=== PATIENT | female | born 1980 | race Caucasian/White ===

== ENCOUNTER 2019-06-14 16:09 | Emergency (ER) | payer MEDICAID, OTHER ==
[~2019-06-14] VITALS: Ht 162.6 cm; Wt 77.1 kg
[2019-06-14 16:31] VITALS: BP 140/97
--- NOTE | 2019-06-14 17:03 | NUR ---
38 Y/O FEMALE STATES SHE HAS INCREASED BLOOD PRESSURE. STATES SHE IS 15 WKS . DENIES BLURRED VISION, HEADACHES, OR PAIN. LMP MAR 04 2019. PT LAYING IN BED CALM AND PLEASANT. RR EVEN AND UNLABORED. VSS. AT BEDSIDE. MEDHX: DENIES ALLERGIES: NKA
[2019-06-14 17:52] LABS: APPEARANCE,URINE CLEAR (CLEAR); BILIRUBIN,URINE NEGATIVE (NEGATIVE); BLOOD, URINE NEGATIVE (NEGATIVE); COLOR,URINE YELLOW (YELLOW); LEUKOCYTE ESTERASE ,URINE NEGATIVE (NEGATIVE); NITRITE, URINE NEGATIVE (NEGATIVE); PH,URINE 5.5 (5.0-9.0); UGLUCOSE NEGATIVE (NEGATIVE)
[2019-06-14 18:20] LABS: BASOPHILS % (AUTO) 0.3 % (0.0-2.0); EOSINOPHILS # (AUTO) 0.2 K/uL (0-0.4); EOSINOPHILS % (AUTO) 1.9 % (0.0-4.0); HEMOGLOBIN 13.7 g/dL (12.0-16.0); LYMPHOCYTES % (AUTO) 22.8 % (20.5-51.1); MEAN CORPUSCULAR HEMOGLOBIN 30 pg (27-31); MEAN CORPUSCULAR HGB CONC 33 g/dL (33-37); MEAN CORPUSCULAR VOLUME 90.4 fL (80-94); MONOCYTES # (AUTO) 0.5 K/uL (0.8-1.0); MONOCYTES % (AUTO) 5.3 % (1.7-9.3); NEUTROPHILS % (AUTO) 69.7 % (42.2-75.2); PLATELET COUNT (AUTO) 283 K/uL (140-450); RED BLOOD CELL COUNT(AUTO) 4.54 MIL/uL (4.20-5.40); RED CELL DISTRIBUTION WIDTH 13.5 % (11.6-13.7); WHITE BLOOD COUNT (AUTO) 8.6 K/uL (4.8-10.8)
[2019-06-14 18:36] LABS: ANION GAP 8.3 (8-16); CARBON DIOXIDE 26.3 mmol/L (21-32); CREATININE 0.6 mg/dL (0.6-1.3); POTASSIUM 3.6 mmol/L (3.5-5.1); TOTAL BILIRUBIN 0.2 mg/dL (0.0-1.0)
[2019-06-14 19:13] VITALS: BP 140/97
--- NOTE | 2019-06-14 19:13 | NUR ---
Patient discharged with v/s stable. Written and verbal after care instructions given and explained. Patient verbalized understanding. Ambulatory with steady gait. All questions addressed prior to discharge. Advised to follow up with PMD.
== END 2019-06-14 19:13 | disposition home or self-care (01) ==
LOC: MED 16:09
DX: O16.2 Unspecified maternal hypertension, second trimester (principal); Z3A.15 15 weeks gestation of pregnancy; Z98.890 Other specified postprocedural states
CPT/HCPCS: 36415; 80053; 81003; 84702; 85025; 86900; 86901; 99283

== ENCOUNTER 2019-08-23 12:34 | Inpatient (IN) | payer MEDICAID, OTHER ==
[~2019-08-23] VITALS: Ht 165.1 cm; Wt 78.0 kg
[2019-08-23] MEDS: LACTATED RINGERS 1,000 ML IV SCH ×2 (04:30→14:42)
[2019-08-23 13:00] VITALS: BP 152/96
[2019-08-23 13:35] LABS: BASOPHILS % (AUTO) 0.4 % (0.0-2.0); EOSINOPHILS # (AUTO) 0.2 K/uL (0-0.4); EOSINOPHILS % (AUTO) 1.8 % (0.0-4.0); HEMOGLOBIN 12.3 g/dL (12.0-16.0); LYMPHOCYTES # (AUTO) 2.1 K/uL (2.5-16.5); LYMPHOCYTES % (AUTO) 23.5 % (20.5-51.1); MEAN CORPUSCULAR HEMOGLOBIN 31 pg (27-31); MEAN CORPUSCULAR HGB CONC 34 g/dL (33-37); MEAN CORPUSCULAR VOLUME 92.1 fL (80-94); MONOCYTES # (AUTO) 0.5 K/uL (0.8-1.0); MONOCYTES % (AUTO) 5.1 % (1.7-9.3); NEUTROPHILS # (AUTO) 6.1 K/uL (1.8-7.7); NEUTROPHILS % (AUTO) 69.2 % (42.2-75.2); PLATELET COUNT (AUTO) 199 K/uL (140-450); RED CELL DISTRIBUTION WIDTH 13.7 % (11.6-13.7); WHITE BLOOD COUNT (AUTO) 8.8 K/uL (4.8-10.8)
[2019-08-23 13:53] LABS: PROTHROMBIN TIME 9.2 secs (10.8-13.4)
[2019-08-23 13:55] LABS: ALBUMIN 2.5 g/dL (3.4-5.0); ANION GAP 12.8 (8-16); CARBON DIOXIDE 25.4 mmol/L (21-32); CREATININE 0.5 mg/dL (0.6-1.3); POTASSIUM 3.2 mmol/L (3.5-5.1); TOTAL BILIRUBIN 0.2 mg/dL (0.0-1.0)
[2019-08-23] MEDS ORDERED: MAG SULF 2000 MG/WATER PREMIX 100 ML IV SCH (14:00)
[2019-08-23 14:13] LABS: APPEARANCE,URINE CLEAR (CLEAR); BILIRUBIN,URINE 1+ (NEGATIVE); BLOOD, URINE NEGATIVE (NEGATIVE); COLOR,URINE YELLOW (YELLOW); LEUKOCYTE ESTERASE ,URINE NEGATIVE (NEGATIVE); NITRITE, URINE NEGATIVE (NEGATIVE); UGLUCOSE NEGATIVE (NEGATIVE)
[2019-08-23 14:44] LABS: URIC ACID 4.1 mg/dL (2.6-7.2)
[2019-08-23] MEDS: LABETALOL 100 MG/20 ML VIAL IV PRN ×2 (15:03→18:07)
[2019-08-23] MEDS: MAG SULF 20 GM/H2O PREMIX DRIP 500 ML IV SCH (15:57)
[2019-08-23 17:25] LABS: URINE TOTAL PROTEIN 118.2 mg/dL (0-12)
[2019-08-23] MEDS ORDERED: BETAMETH ACET/BETAMETH NA PH 30 MG/5 ML VIAL IM ONE ×2 (18:30→18:36)
[2019-08-23] MEDS ORDERED: LABETALOL 100 MG/20 ML VIAL IVP ONE ×2 (21:10)
[2019-08-23] MEDS ORDERED: TRA200 PO (23:06)
[2019-08-24] MEDS: MAG SULF 20 GM/H2O PREMIX DRIP 500 ML IV SCH (05:39)
[2019-08-24] MEDS ORDERED: LABETALOL 100 MG TAB PO SCH ×2 (09:00→09:30)
[2019-08-24] MEDS: LACTATED RINGERS 1,000 ML IV SCH (14:03)
[2019-08-24] MEDS ORDERED: BETAMETH ACET/BETAMETH NA PH 30 MG/5 ML VIAL IM ONE (18:00)
== END 2019-08-24 18:35 | disposition home or self-care (01) | DRG 566 ==
LOC: MLD 12:34 → OBSVTOIN 12:34 → MLD 13:58
PROVIDERS: ADMIT Obstetrics & Gynecology; ATTEND Obstetrics & Gynecology
DX: O14.92 Unspecified pre-eclampsia, second trimester (principal); Z3A.24 24 weeks gestation of pregnancy
CPT/HCPCS: 36415; 76805; 80053; 81003; 82570; 83735; 84550; 85025; 85384; 85610; 85730; J0702; J3475; J3490; J7120; Q0092

== ENCOUNTER 2019-09-12 09:23 | Observation (INO) | payer OTHER ==
[~2019-09-12] VITALS: Ht 165.1 cm; Wt 78.9 kg
[~2019-09-12 09:23] MED LIST: TRA200 PO
[2019-09-12] MEDS ORDERED: LACTATED RINGERS 1,000 ML IV SCH (10:05)
[2019-09-12] MEDS ORDERED: LABETALOL 100 MG/20 ML VIAL IVP SCH (11:00)
[2019-09-12 11:07] LABS: BASOPHILS % (AUTO) 0.3 % (0.0-2.0); EOSINOPHILS # (AUTO) 0.1 K/uL (0-0.4); EOSINOPHILS % (AUTO) 0.7 % (0.0-4.0); HEMATOCRIT 42.7 % (36-48); HEMOGLOBIN 14.6 g/dL (12.0-16.0); LYMPHOCYTES # (AUTO) 1.8 K/uL (2.5-16.5); LYMPHOCYTES % (AUTO) 21.6 % (20.5-51.1); MEAN CORPUSCULAR HEMOGLOBIN 32 pg (27-31); MEAN CORPUSCULAR HGB CONC 34 g/dL (33-37); MEAN CORPUSCULAR VOLUME 92.4 fL (80-94); MONOCYTES # (AUTO) 0.3 K/uL (0.8-1.0); MONOCYTES % (AUTO) 4.1 % (1.7-9.3); NEUTROPHILS # (AUTO) 6.2 K/uL (1.8-7.7); NEUTROPHILS % (AUTO) 73.3 % (42.2-75.2); PLATELET COUNT (AUTO) 161 K/uL (140-450); RED BLOOD CELL COUNT(AUTO) 4.63 MIL/uL (4.20-5.40); RED CELL DISTRIBUTION WIDTH 14.2 % (11.6-13.7); WHITE BLOOD COUNT (AUTO) 8.5 K/uL (4.8-10.8)
[2019-09-12 11:17] LABS: APPEARANCE,URINE HAZY (CLEAR); BILIRUBIN,URINE NEGATIVE (NEGATIVE); BLOOD, URINE 1+ (NEGATIVE); COLOR,URINE YELLOW (YELLOW); LEUKOCYTE ESTERASE ,URINE NEGATIVE (NEGATIVE); NITRITE, URINE NEGATIVE (NEGATIVE); UGLUCOSE NEGATIVE (NEGATIVE)
[2019-09-12] MEDS ORDERED: MAG SULF 2000 MG/WATER PREMIX 50 ML IV ONE (11:20)
[2019-09-12] MEDS ORDERED: MAG SULF 2000 MG/WATER PREMIX 100 ML IV SCH (11:20)
[2019-09-12] MEDS ORDERED: MAG SULF 20 GM/H2O PREMIX DRIP 500 ML IV SCH (11:20)
[2019-09-12] MEDS ORDERED: MAG SULF 2000 MG/WATER PREMIX 100 ML IV ONE (11:25)
[2019-09-12 11:29] LABS: ALBUMIN 1.7 g/dL (3.4-5.0); ANION GAP 10.7 (8-16); CARBON DIOXIDE 24.2 mmol/L (21-32); CREATININE 0.9 mg/dL (0.6-1.3); POTASSIUM 3.9 mmol/L (3.5-5.1); TOTAL BILIRUBIN 0.1 mg/dL (0.0-1.0)
[2019-09-12 11:40] LABS: PROTHROMBIN TIME 8.5 secs (10.8-13.4)
[2019-09-12 11:43] LABS: RBC,URINE NONE SEEN /HPF (0-5)
[2019-09-12] MEDS ORDERED: LABETALOL 100 MG/20 ML VIAL IV SCH (11:58)
[2019-09-12 12:05] LABS: URIC ACID 6.3 mg/dL (2.6-7.2)
[2019-09-12] MEDS ORDERED: hydrALAZINE 20 MG/ML VIAL ONE (12:36)
[2019-09-12] MEDS ORDERED: hydrALAZINE 20 MG/ML VIAL IVP SCH ×3 (12:37→16:00)
[2019-09-12] MEDS ORDERED: NIFE30TE5 PO (13:13)
[2019-09-12 16:06] VITALS: BP 161/109
== END 2019-09-12 16:30 | disposition short-term general hospital (02) ==
LOC: MLD 09:23
PROVIDERS: ADMIT Obstetrics & Gynecology; ATTEND Obstetrics & Gynecology
DX: O10.912 Unspecified pre-existing hypertension complicating pregnancy, second trimester (principal); O26.892 Other specified pregnancy related conditions, second trimester; R10.11 Right upper quadrant pain; O09.523 Supervision of elderly multigravida, third trimester; Z3A.27 27 weeks gestation of pregnancy
CPT/HCPCS: 36415; 76805; 76819; 80053; 81001; 82570; 83735; 84550; 85025; 85384; 85610; 85730; 87086; 96365; 96366; 96375; 96376; G0378; J0360; J3475; J3490; J7120; Q0092